=== PATIENT | male | born 1950 | race Caucasian/White ===

== ENCOUNTER 2018-06-05 07:26 | Outpatient (CLI) | payer MEDICARE ==
[~2018-06-05] VITALS: Ht 167.6 cm; Wt 71.4 kg
[2018-06-05 07:49] LABS: BASOPHILS 0.4 % (0-2); EOSINOPHILS 2.3 % (0-7); HEMATOCRIT 39.4 % (42.0-54.0); HEMOGLOBIN 13.3 g/dL (13.5-17.5); IMMATURE GRANULOCYTES 0.4 % (0-5); LYMPHOCYTES 17.8 % (15-50); MCH 29.4 pg (26.0-34.0); MCHC 33.8 g/dL (31.0-37.0); MCV 87.2 fL (80.0-100.0); MONOCYTES 8.1 % (2-11); PLATELET COUNT 234 10x3/uL (130-400); RBC 4.52 10x6/uL (4.20-6.10); RDW 13.6 % (11.5-14.5); WBC 12.7 10x3/uL (4.8-10.8)
[2018-06-05 08:01] LABS: CALC OSMOLALITY 276 mosm/kg (275-300); CALCIUM 9.2 mg/dL (8.5-10.1); CARBON DIOXIDE 26.9 mmol/L (21.0-32.0); CHLORIDE - SERUM 99 mmol/L (98-107); CREATININE - SERUM 0.8 mg/dL (0.6-1.3); GLUCOSE 149 mg/dL (74-106); POTASSIUM - SERUM 4.1 mmol/L (3.5-5.1); SODIUM 136 mmol/L (136-145); UREA NITROGEN 18 mg/dL (7-18); eGFR NON AFRICAN AMERICAN > 90 mL/min (90-120)
[2018-06-05 08:13] LABS: APTT 32.3 SECONDS (22.8-39.4); INR 1.06 (0.85-1.17); PROTIME 13.4 SECONDS (11.6-15.0)
[2018-06-05] MEDS ORDERED: TRULICITY1.5 MG/0.5 SC (08:56)
[2018-06-05] MEDS ORDERED: ZOCOR40 MG PO (08:56)
[2018-06-05] MEDS ORDERED: FENOFIBRATE160 MG PO (08:57)
[2018-06-05] MEDS ORDERED: XANAX0.5 MG PO (08:58)
[2018-06-05] MEDS ORDERED: OMEPRAZOLE40 MG PO (08:58)
[2018-06-05] MEDS ORDERED: ZESTORETIC 20/21 TAB PO (08:59)
[2018-06-05] MEDS ORDERED: TYLENOL #4 W/CO1 TAB PO (08:59)
[2018-06-05 09:14] VITALS: BP 109/66; Ht 167.6 cm; Wt 71.4 kg
== END 2018-06-05 14:45 | disposition home or self-care (01) ==
LOC: D.SP 07:26
PROVIDERS: Specialist
DX: D37.8 Neoplasm of uncertain behavior of other specified digestive organs (principal)

== ENCOUNTER 2018-06-26 06:58 | Outpatient (CLI) | payer MEDICARE ==
[~2018-06-26] VITALS: Ht 167.6 cm; Wt 69.5 kg
[~2018-06-26 06:58] MED LIST: FENOFIBRATE160 MG PO; OMEPRAZOLE40 MG PO; TRULICITY1.5 MG/0.5 SC; TYLENOL #4 W/CO1 TAB PO; XANAX0.5 MG PO; ZESTORETIC 20/21 TAB PO; ZOCOR40 MG PO
[2018-06-26 07:30] LABS: BASOPHILS 0.3 % (0-2); EOSINOPHILS 3.3 % (0-7); HEMATOCRIT 38.1 % (42.0-54.0); HEMOGLOBIN 13.1 g/dL (13.5-17.5); IMMATURE GRANULOCYTES 0.6 % (0-5); LYMPHOCYTES 20.6 % (15-50); MCH 29.7 pg (26.0-34.0); MCHC 34.4 g/dL (31.0-37.0); MCV 86.4 fL (80.0-100.0); MEAN PLATELET VOLUME 8.7 fL (7.4-10.4); MONOCYTES 8.9 % (2-11); NEUTROPHILS 66.3 % (40-80); RBC 4.41 10x6/uL (4.20-6.10); WBC 15.6 10x3/uL (4.8-10.8)
[2018-06-26 07:31] LABS: PLATELET COUNT 287 10x3/uL (130-400)
[2018-06-26 07:32] LABS: CALC OSMOLALITY 274 mosm/kg (275-300); CALCIUM 9.3 mg/dL (8.5-10.1); CARBON DIOXIDE 24.5 mmol/L (21.0-32.0); CHLORIDE - SERUM 98 mmol/L (98-107); CREATININE - SERUM 0.9 mg/dL (0.6-1.3); GLUCOSE 139 mg/dL (74-106); POTASSIUM - SERUM 4.1 mmol/L (3.5-5.1); SODIUM 134 mmol/L (136-145); UREA NITROGEN 26 mg/dL (7-18); eGFR NON AFRICAN AMERICAN 89 mL/min (90-120)
[2018-06-26 07:36] LABS: APTT 32.7 SECONDS (22.8-39.4); INR 1.22 (0.85-1.17)
[2018-06-26] MEDS ORDERED: LOPRESSOR25 MG PO (08:07)
[2018-06-26] MEDS ORDERED: CELEXA10 MG PO (08:09)
[2018-06-26 08:11] VITALS: BP 126/70; Ht 167.6 cm; Wt 69.5 kg
== END 2018-06-26 12:15 | disposition home or self-care (01) ==
LOC: D.SP 06:58 → D.CT 09:00 → D.SP 09:00 → D.CT 09:30 → D.SP 12:15
PROVIDERS: Radiology Diagnostic Radiology
DX: G89.3 Neoplasm related pain (acute) (chronic) (principal); C25.9 Malignant neoplasm of pancreas, unspecified; R10.9 Unspecified abdominal pain; Z01.812 Encounter for preprocedural laboratory examination

== ENCOUNTER 2018-07-07 09:49 | Outpatient (CLI) | payer MEDICARE ==
[~2018-07-07] VITALS: Ht 167.6 cm; Wt 69.5 kg
[~2018-07-07 09:49] MED LIST changes: +CELEXA10 MG PO; +LOPRESSOR25 MG PO
[2018-07-07 11:02] VITALS: BMI 24.7
[2018-07-07 11:50] LABS: CALC OSMOLALITY 278 mosm/kg (275-300); CARBON DIOXIDE 22.8 mmol/L (21.0-32.0); CHLORIDE - SERUM 102 mmol/L (98-107); CREATININE - SERUM 0.6 mg/dL (0.6-1.3); POTASSIUM - SERUM 4.7 mmol/L (3.5-5.1); SODIUM 137 mmol/L (136-145); UREA NITROGEN 12 mg/dL (7-18); eGFR NON AFRICAN AMERICAN > 90 mL/min (90-120)
[2018-07-07 11:52] LABS: GLUCOSE 193 mg/dL (74-106)
[2018-07-07 12:02] LABS: INR 1.22 (0.85-1.17)
[2018-07-07 12:03] LABS: APTT 31.4 SECONDS (22.8-39.4)
[2018-07-07 12:04] LABS: BASOPHILS 0.4 % (0-2); EOSINOPHILS 2.9 % (0-7); HEMATOCRIT 37.6 % (42.0-54.0); IMMATURE GRANULOCYTES 0.4 % (0-5); LYMPHOCYTES 15.5 % (15-50); MCH 29.8 pg (26.0-34.0); MCHC 34.6 g/dL (31.0-37.0); MCV 86.2 fL (80.0-100.0); MEAN PLATELET VOLUME 9.3 fL (7.4-10.4); NEUTROPHILS 71.8 % (40-80); RBC 4.36 10x6/uL (4.20-6.10); RDW 14.1 % (11.5-14.5)
[2018-07-07 12:06] LABS: PLATELET COUNT 375 10x3/uL (130-400)
[2018-07-07 20:35] VITALS: BP 100/62
[2018-07-08 00:22] VITALS: BP 100/62; Ht 167.6 cm; Wt 69.5 kg
[2018-07-08 04:50] VITALS: BP 138/70
[2018-07-08 08:50] VITALS: BP 113/69
== END 2018-07-08 10:54 | disposition home or self-care (01) ==
LOC: D.OPS 09:49 → D.CT 12:00 → D.OPS 12:00 → D.MS 18:14 → D.OPS 07-08 10:54
PROVIDERS: Radiology Diagnostic Radiology
DX: C25.9 Malignant neoplasm of pancreas, unspecified (principal); I10 Essential (primary) hypertension; I25.10 Atherosclerotic heart disease of native coronary artery without angina pectoris; E11.9 Type 2 diabetes mellitus without complications; Z01.812 Encounter for preprocedural laboratory examination

== ENCOUNTER 2018-09-21 09:20 | Day surgery (SDC) | payer MEDICARE ==
[2018-09-18 15:12] LABS: BASOPHILS 0.1 % (0-2); EOSINOPHILS 1.2 % (0-7); HEMATOCRIT 32.1 % (42.0-54.0); HEMOGLOBIN 10.4 g/dL (13.5-17.5); IMMATURE GRANULOCYTES 0.4 % (0-5); LYMPHOCYTES 19.2 % (15-50); MCH 31.4 pg (26.0-34.0); MCHC 32.4 g/dL (31.0-37.0); MEAN PLATELET VOLUME 8.9 fL (7.4-10.4); MONOCYTES 4.6 % (2-11); NEUTROPHILS 74.5 % (40-80); RBC 3.31 10x6/uL (4.20-6.10); RDW 20.5 % (11.5-14.5)
[2018-09-18 15:25] LABS: APTT 24.1 SECONDS (22.8-39.4); INR 1.19 (0.85-1.17); PROTIME 14.8 SECONDS (11.6-15.0)
[2018-09-18 15:38] LABS: CALC OSMOLALITY 270 mosm/kg (275-300); CALCIUM 8.5 mg/dL (8.5-10.1); CARBON DIOXIDE 27.3 mmol/L (21.0-32.0); CHLORIDE - SERUM 97 mmol/L (98-107); CREATININE - SERUM 0.7 mg/dL (0.6-1.3); GLUCOSE 185 mg/dL (74-106); POTASSIUM - SERUM 3.8 mmol/L (3.5-5.1); SODIUM 132 mmol/L (136-145); UREA NITROGEN 16 mg/dL (7-18); eGFR NON AFRICAN AMERICAN > 90 mL/min (90-120)
[2018-09-18 15:50] LABS: PLATELET COUNT 238 10x3/uL (130-400)
[~2018-09-21] VITALS: Ht 170.2 cm; Wt 70.3 kg
[2018-09-21] MEDS ORDERED: MEGACE400 MG/10 PO (09:50)
[2018-09-21 10:03] VITALS: BP 116/74; Ht 170.2 cm; Wt 70.3 kg
[2018-09-21] MEDS ORDERED: FENTANYL 50 MCG/HR TRANSDERM (10:34)
[2018-09-21] MEDS ORDERED: OXYCODONE HCL E20 MG (10:36)
[2018-09-21] MEDS ORDERED: OXYCODONE HCL5 M1 PO (12:52)
== END 2018-09-21 14:30 | disposition home or self-care (01) ==
LOC: D.OPS 09:20 → D.PAN 11:00 → D.OPS 11:00 → D.PAN 12:45 → D.OPS 12:45
PROVIDERS: Anesthesiology
DX: C25.9 Malignant neoplasm of pancreas, unspecified (principal); Z01.812 Encounter for preprocedural laboratory examination

== ENCOUNTER → 2018-10-06 09:36 | Outpatient (CLI) | payer MEDICARE ==
[2018-09-21 10:03] VITALS: BMI 24.3
[~2018-10-06 09:36] MED LIST changes: +FENTANYL 50 MCG/HR TRANSDERM; +MEGACE400 MG/10 PO; +OXYCODONE HCL E20 MG; +OXYCODONE HCL5 M1 PO
== END | disposition home or self-care (01) ==
LOC: D.CT 09-15 10:30
DX: R07.9 Chest pain, unspecified (principal); R10.9 Unspecified abdominal pain